=== PATIENT | female | born 1990 | race Caucasian/White ===

== ENCOUNTER 2018-04-07 00:23 | Emergency (ER) | payer OTHER ==
[~2018-04-07] VITALS: Ht 160 cm; Wt 85.7 kg
== END 2018-04-07 02:05 | disposition home or self-care (01) ==
LOC: ED 00:23
DX: R07.89 Other chest pain (principal); Z88.0 Allergy status to penicillin
CPT/HCPCS: 71046; 85379; 99283

== ENCOUNTER 2021-09-09 19:29 | Emergency (ER) | payer OTHER ==
[~2021-09-09] VITALS: Ht 160 cm; Wt 92.5 kg
== END 2021-09-09 21:47 | disposition home or self-care (01) ==
LOC: ED 19:29
DX: R11.0 Nausea (principal); R42 Dizziness and giddiness; Z88.0 Allergy status to penicillin
CPT/HCPCS: 80053; 84703; 96374; 96375; 99284-25; J1885; J2765; J7030

== ENCOUNTER 2024-12-11 14:29 | Emergency (ER) | payer OTHER ==
[~2024-12-11] VITALS: Ht 160 cm; Wt 93.9 kg
[2024-12-11 16:45] LABS: BASOPHILS 0.4 % (0-2); EOSINOPHILS 2.7 % (0-6); HEMATOCRIT 42.9 % (35.0-50.0); HEMOGLOBIN 14.6 g/dL (12.0-18.0); LYMPHOCYTES 21.3 % (24-44); MCH 30.3 (27-36); MCHC 34.1 g/dl (30-36); MONOCYTES 4.7 % (0-12); NEUTROPHILS 70.9 % (39-80); PLATELET COUNT 356 K/uL (140-440); RBC 4.82 M/ul (4.3-5.7); RDW 13.5 (10.5-15.0)
[2024-12-11 16:54] LABS: BILIRUBIN, URINE NEGATIVE (negative); BLOOD/HGB, URINE MODERATE (Negative); KETONE, URINE NEGATIVE (Negative); LEUK ESTERASE, URINE NEGATIVE (negative); NITRITE, URINE NEGATIVE (negative); PH, URINE 5.5 (5-7)
[2024-12-11 17:03] LABS: BACTERIA, URINE RARE /hpf (negative); CASTS, URINE NONE SEEN \\lpf; COLLECTION TYPE, URINE CLEAN CATCH; CRYSTALS, URINE CALCIUM OXALATE 3+ (0-1+); EPITHELIAL CELLS, URINE SQUAMOUS 1+ /lpf (0-1+); RED BLOOD CELLS, URINE 0-1 /hpf (0-5); REFLEX CULTURE, URINE No (No); WHITE BLOOD CELLS, URINE 0-1 /HPF (0-5)
[2024-12-11 17:06] LABS: ABO O; RH POSITIVE
[2024-12-11 17:19] LABS: ALBUMIN 3.8 g/dL (3.4-5.0); ANION GAP 12.8 (7-21); BILIRUBIN, TOTAL 0.2 ng/dL (0.2-1.0); BUN/CREATININE RATIO 20.27 (6.0-28.6); CALCIUM 8.9 mg/dL (8.5-10.1); CREATININE, SERUM 0.74 mg/dL (0.55-1.02); POTASSIUM 3.8 mmol/L (3.5-5.1); PROTEIN, TOTAL 7.6 g/dL (6.4-8.2)
[2024-12-11] MEDS ORDERED: PROMETHAZINE HC25 M1 PO (17:49)
[2024-12-11 17:57] VITALS: BP 107/70
== END 2024-12-11 17:57 | disposition home or self-care (01) ==
LOC: ED 14:29
PROVIDERS: Emergency Medicine
DX: O20.0 Threatened abortion (principal); Z3A.01 Less than 8 weeks gestation of pregnancy; Z88.0 Allergy status to penicillin
CPT/HCPCS: 36415; 76801; 76817; 80053; 81001; 84702; 85025; 86900; 86901; 99284-25

== ENCOUNTER 2025-01-30 15:29 | Emergency (ER) | payer OTHER ==
[~2025-01-30] VITALS: Ht 160 cm; Wt 99.2 kg
[~2025-01-30 15:29] MED LIST: PROMETHAZINE HC25 M1 PO
[2025-01-30] MEDS ORDERED: PRENATAL + DHA1 EAC1 PO (15:52)
[2025-01-30 17:05] LABS: BASOPHILS 0.4 % (0-2); EOSINOPHILS 2.2 % (0-6); HEMATOCRIT 36.7 % (35.0-50.0); HEMOGLOBIN 12.7 g/dL (12.0-18.0); LYMPHOCYTES 22.2 % (24-44); MCHC 34.5 g/dl (30-36); MCV 87.1 fl (81-99); MONOCYTES 3.9 % (0-12); NEUTROPHILS 71.3 % (39-80); PLATELET COUNT 336 K/uL (140-440); RBC 4.22 M/ul (4.3-5.7); RDW 13.4 (10.5-15.0)
[2025-01-30 17:45] LABS: ALBUMIN 3.2 g/dL (3.4-5.0); ALBUMIN/GLOBULIN RATIO 0.89 (1.1-2.4); ANION GAP 10.9 (7-21); BILIRUBIN, TOTAL 0.2 mg/dL (0.2-1.0); BUN/CREATININE RATIO 15.78 (6.0-28.6); CALCIUM 8.7 mg/dL (8.5-10.1); CREATININE, SERUM 0.57 mg/dL (0.55-1.02); POTASSIUM 3.9 mmol/L (3.5-5.1); PROTEIN, TOTAL 6.8 g/dL (6.4-8.2)
[2025-01-30 19:25] VITALS: BP 126/96
== END 2025-01-30 19:25 | disposition home or self-care (01) ==
LOC: ED 15:29
PROVIDERS: Emergency Medicine
DX: O43.892 Other placental disorders, second trimester (principal); Z3A.14 14 weeks gestation of pregnancy; Z88.0 Allergy status to penicillin
CPT/HCPCS: 36415; 76801; 80053; 84702; 85025; 99284-25

== ENCOUNTER 2025-02-08 01:19 | Emergency (ER) | payer OTHER ==
[~2025-02-08] VITALS: Ht 160 cm; Wt 99.7 kg
[~2025-02-08 01:19] MED LIST changes: +PRENATAL + DHA1 EAC1 PO
--- OUTSIDE RECORDS SUMMARY | 2025-02-08 01:26 | XMS ---
PreManage Notification: ERINN PLATT Security Morning [employer] Newsc[employer] Producer Events No recent Security Events currently on file CRITERIA MET - [facility] - 2 Visits in 30 Days CARE PROVIDERS -, [facility]ist: Special Effects Specialist Current [employer] PHONE: [phone] NOHELIA PALACIOS I. Physician Administrator Pesticide Current PHONE: [phone] [facility]: [facility] Current FAMILY PHONE: [phone] Davy has no Care Guidelines for this patient. EJohn VISIT COUNT (12 MO.) 3 [facility] TOTAL 3 NOTE: Visits indicate total known visits. ED/UCC VISIT TRACKING (12 MO.) 02/08/2025 01:20 [facility] TYPE: Emergency COMPLAINT: - CRAMPS/BLEEDING 15 WEEKS 01/30/2025 15:29 [facility] [place] TYPE: Emergency COMPLAINT: - VAGINAL BLEEDING/CRAMPING/13-14 WEEKS DIAGNOSES: - 14 weeks gestation of - Allergy status to penicillin - Antepartum hemorrhage, unspecified, second trimester - Other placental disorders, second trimester 12/11/2024 14:[address] [facility] TYPE: Emergency COMPLAINT: - VAGINAL BLEEDING DIAGNOSES: - Allergy status to penicillin - Antepartum hemorrhage, unspecified, first trimester - Less than 8 weeks gestation of - Threatened INPATIENT VISIT TRACKING (12 MO.) No inpatient visits to display in this time frame [email or web address]
[2025-02-08] MEDS ORDERED: ONDANSETRON ODT4 MG PO (01:32)
[2025-02-08] MEDS ORDERED: LACTATED RINGER'S 1,000 ML IV ONE (01:45)
[2025-02-08 01:52] LABS: BASOPHILS 0.3 % (0-2); EOSINOPHILS 2.6 % (0-6); HEMATOCRIT 35.6 % (35.0-50.0); HEMOGLOBIN 12.4 g/dL (12.0-18.0); LYMPHOCYTES 25.3 % (24-44); MCH 30.1 (27-36); MCHC 34.8 g/dl (30-36); MCV 86.6 fl (81-99); MONOCYTES 4.3 % (0-12); NEUTROPHILS 67.5 % (39-80); PLATELET COUNT 309 K/uL (140-440); RBC 4.11 M/ul (4.3-5.7); RDW 13.3 (10.5-15.0)
[2025-02-08] MEDS ORDERED: hydrOXYzine pamoate 50 MG CAP PO ONE (02:15)
[2025-02-08 02:29] LABS: ALBUMIN 2.8 g/dL (3.4-5.0); ALBUMIN/GLOBULIN RATIO 0.82 (1.1-2.4); ANION GAP 11.4 (7-21); BILIRUBIN, TOTAL 0.2 mg/dL (0.2-1.0); BUN/CREATININE RATIO 13.2 (6.0-28.6); CALCIUM 8.4 mg/dL (8.5-10.1); CREATININE, SERUM 0.53 mg/dL (0.55-1.02); POTASSIUM 3.4 mmol/L (3.5-5.1); PROTEIN, TOTAL 6.2 g/dL (6.4-8.2)
[2025-02-08 02:40] LABS: BILIRUBIN, URINE NEGATIVE (negative); BLOOD/HGB, URINE LARGE (Negative); KETONE, URINE NEGATIVE (Negative); LEUK ESTERASE, URINE NEGATIVE (negative); NITRITE, URINE NEGATIVE (negative)
[2025-02-08 02:56] LABS: BACTERIA, URINE 1+ /hpf (negative); CASTS, URINE NONE SEEN \\lpf; COLLECTION TYPE, URINE CLEAN CATCH; CRYSTALS, URINE NONE SEEN (0-1+); EPITHELIAL CELLS, URINE SQUAMOUS 1+ /lpf (0-1+); REFLEX CULTURE, URINE No (No)
[2025-02-08] MEDS ORDERED: MACROBID 100 M100 MG PO (03:06)
[2025-02-08] MEDS ORDERED: NITROFURANTOIN MONOHYD MACROCR 100 MG HOME.PACK PO ONE (03:15)
[2025-02-08 03:19] VITALS: BP 116/77
== END 2025-02-08 03:20 | disposition home or self-care (01) ==
LOC: ED 01:19
PROVIDERS: Family Medicine
DX: O20.8 Other hemorrhage in early pregnancy (principal); O23.42 Unspecified infection of urinary tract in pregnancy, second trimester; Z3A.15 15 weeks gestation of pregnancy; Z79.899 Other long term (current) drug therapy; Z88.0 Allergy status to penicillin; Z88.1 Allergy status to other antibiotic agents
CPT/HCPCS: 36415; 80053; 81001; 84702; 85025; 99284; J7121

== ENCOUNTER 2025-02-08 11:34 | Emergency (ER) | payer OTHER ==
[~2025-02-08] VITALS: Ht 160 cm; Wt 99.6 kg
[~2025-02-08 11:34] MED LIST changes: +MACROBID 100 M100 MG PO; +ONDANSETRON ODT4 MG PO
--- OUTSIDE RECORDS SUMMARY | 2025-02-08 11:41 | XMS ---
PreManage Notification: ERINN PLATT Security Database Technician Events No recent Security Events currently on file CRITERIA MET - [facility] - 2 Visits in 30 Days CARE PROVIDERS -, [facility] Dentist: Pattern Filer Current [employer] PHONE: [phone] NOHELIA PALACIOS I. Physician Tie Bucker Current PHONE: [phone] [facility]: [facility] Current FAMILY PHONE: [phone] Davy has no Care Guidelines for this patient. EJohn VISIT COUNT (12 MO.) [address] [facility] TOTAL 4 NOTE: Visits indicate total known visits. ED/UCC VISIT TRACKING (12 MO.) 02/08/2025 11:35 [facility] TYPE: Emergency COMPLAINT: - VAGINAL BLEEDING 02/08/2025 01:20 [facility] TYPE: Emergency COMPLAINT: - CRAMPS/BLEEDING 15 WEEKS 01/30/2025 15:29 [facility] TYPE: Emergency COMPLAINT: - VAGINAL BLEEDING/CRAMPING/13-14 WEEKS DIAGNOSES: - 14 weeks gestation of - Allergy status to penicillin - Antepartum hemorrhage, unspecified, second trimester - Other placental disorders, second trimester 12/11/2024 14:29 [facility] [place] TYPE: Emergency COMPLAINT: - VAGINAL BLEEDING DIAGNOSES: - Allergy status to penicillin - Antepartum hemorrhage, unspecified, first trimester - Less than 8 weeks gestation of - Threatened INPATIENT VISIT TRACKING (12 MO.) No inpatient visits to display in this time frame [email or web address]
[2025-02-08 13:42] VITALS: BP 123/74
[2025-02-08] MEDS ORDERED: ACETAMINOPHEN 500 MG TAB PO ONE (13:45)
== END 2025-02-08 13:42 | disposition home or self-care (01) ==
LOC: ED 11:34
DX: O20.0 Threatened abortion (principal); Z3A.15 15 weeks gestation of pregnancy; Z79.899 Other long term (current) drug therapy; Z88.0 Allergy status to penicillin
CPT/HCPCS: 76815; 99284; A9270

== ENCOUNTER 2025-04-02 10:28 | Emergency (ER) | payer OTHER ==
[~2025-04-02] VITALS: Ht 160 cm; Wt 122.0 kg
[2025-04-02] MEDS ORDERED: HYDROXYZINE HCL25 MG PO (10:44)
[2025-04-02] MEDS ORDERED: FAMOTIDINE20 MG PO (10:44)
[2025-04-02 10:47] VITALS: BP 143/83
== END 2025-04-02 10:47 | disposition other institution, planned readmission (95) ==
LOC: ED 10:28
DX: O09.92 Supervision of high risk pregnancy, unspecified, second trimester (principal); R10.9 Unspecified abdominal pain; Z3A.22 22 weeks gestation of pregnancy; Z88.0 Allergy status to penicillin; Z88.1 Allergy status to other antibiotic agents; Z79.811 Long term (current) use of aromatase inhibitors; Z79.899 Other long term (current) drug therapy
CPT/HCPCS: 99284